=== PATIENT | female | born 1975 ===

== ENCOUNTER 2016-04-03 19:48 | Emergency (ER) | payer SELFPAY ==
[2016-04-03] MEDS ORDERED: ACETAMINOPHEN 325 MG TABLET ONE (20:42)
--- NOTE | 2016-04-03 21:02 | RAD ---
Name: FELIPE PARKER Exam: Two-view chest Comparison: 02/07/2011 Clinical history: Cough and fever Findings: 2 views of the chest are submitted. The heart mediastinum and hilar structures are within normal limits. There is no failure, infiltrate, pleural effusion or pneumothorax. Regional skeleton is within normal limits. The gallbladder is surgically absent. Impression: No acute cardiopulmonary process
[2016-04-03] MEDS ORDERED: AZITHROMYCIN 250 MG TABLET ONE (21:23)
== END 2016-04-03 21:38 | disposition home or self-care (01) ==
LOC: ED 19:48
DX: R05 Cough (principal); M54.9 Dorsalgia, unspecified
CPT/HCPCS: 71020; 87804; 99283 ×2; A9270 ×2